=== PATIENT | female | born 1970 | race African-American/Black ===

== ENCOUNTER 2024-02-26 17:58 | Emergency (ER) | payer BC ==
[2024-02-26 18:33] LABS: PT Prothrombin Time 12.5 SECONDS (9.5-12.5); Protime INR 1.14
[2024-02-26 18:42] LABS: Absolute Eosinophils 0.1 K/uL (0-0.5); Absolute Lymphocytes (CBC) 1.4 K/uL (0.7-4.9); Absolute Monocytes 0.7 K/uL (0.1-1.3); Absolute Neutrophil 6.2 K/uL (1.8-8.0); Basophils % 0.4 % (0-1.3); Eosinophils % 1.7 % (0-4.4); Hematocrit 38.8 % (36.0-45.0); Hemoglobin 13.1 g/dL (12.0-15.0); Lymphocytes % 16.2 % (15.3-44.8); MCH 27.9 pg (27.0-35.0); MCHC 33.8 g/dL (32.0-36.0); MCV 82.5 fL (80-100); MPV 9.1 fL (7.6-11.3); Neutrophils % 73.7 % (41.7-73.7); Platelets 214 thou/uL (152-406); Red Cell Distribution Width 13.9 % (12.1-15.2)
[2024-02-26 18:44] LABS: Albumin 4.2 g/dL (3.4-5.0); Albumin/Globulin Ratio 1.1 (1.1-1.8); Bilirubin Direct 0.2 mg/dL (0-0.2); Bilirubin Indirect, Calculated 0.5 mg/dL (0.2-0.8); Bilirubin Total 0.7 mg/dL (0.2-1.0); Globulin 3.9 g/dL (2.3-3.5); Magnesium 2.1 mg/dL (1.6-2.4); Protein, Total 8.1 g/dL (6.4-8.2); Troponin High Sensitivity 3.3 pg/mL (<58.9)
--- NOTE | 2024-02-26 19:02 | RAD REPORT ---
EXAM DESCRIPTION: RAD - Chest Single View - 02/26/2024 6:54 pm CLINICAL HISTORY: CHEST PAIN Chest pain. COMPARISON: No comparisons FINDINGS: Portable technique limits examination quality. The lungs are grossly clear. The heart is normal in size. No displaced fractures. IMPRESSION: No acute intrathoracic process suspected.
[2024-02-26] MEDS ORDERED: POTASSIUM 25 MEQ EFFERV TAB ONE (19:20)
--- NOTE | 2024-02-26 20:03 | RAD REPORT ---
EXAM DESCRIPTION: CT - Head Brain Wo Cont - 02/26/2024 7:57 pm CLINICAL HISTORY: DIZZINESS Headache, drowsiness COMPARISON: No comparisons TECHNIQUE: All CT scans are performed using dose optimization technique as appropriate and may inclu de automated exposure control or mA/KV adjustment according to patient size. FINDINGS: No intracranial hemorrhage, hydrocephalus or extra-axial fluid collection.No areas of brai n edema or evidence of midline shift. The paranasal sinuses and mastoids are clear. The calvarium is intact. IMPRESSION: No acute intracranial abnormality.
--- NOTE | 2024-02-26 22:16 | ER ---
Nurse's Notes [facility] Name: Chato Galicia Age: 53 yrs Sex: Female : 1970 Arrival Date: 02/26/2024 Time: 17:58 Bed 5 Private MD: Diagnosis: Chest pain, unspecified;Dizziness and giddiness Presentation: 02/25 18:02 Chief complaint: Patient states: chest pain started about 2pm, comes and goes, stays in ko1 one spot in the left upper chest area. Dizziness or "just feeling wobbly" off and on throughout the day. Coronavirus screen: At this time, the client does not indicate any symptoms associated with coronavirus-19. Ebola Screen: No symptoms or risks identified at this time. Initial Sepsis Screen: Does the patient meet any 2 criteria? No. Patient's initial sepsis screen is negative. Does the patient have a suspected source of infection? No. Patient's initial sepsis screen is negative. Risk Assessment: Do you want to hurt yourself or someone else? Patient reports no desire to harm self or others. Onset of symptoms was February 26, 2024. 18:02 Method Of Arrival: Ambulatory ko1 18:02 Acuity: SHANTELL 3 ko1 Triage Assessment: 18:06 General: Appears in no apparent distress. Behavior is calm, cooperative, appropriate ko1 for age. Pain: Complains of pain in anterior aspect of left upper chest. Cardiovascular: Reports chest pain. 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 - Infectious Disease History:: Denies. - Social history:: Smoking status: Patient denies any tobacco usage or history of. Screenin:08 [facility] ED Fall Risk Assessment (Adult) History of falling in the last 3 months, mb9 including since admission No falls in past 3 months (0 pts) Confusion or Disorientation No (0 pts) Intoxicated or Sedated No (0 pts) Impaired Gait No (0 pts) Mobility Assist Device Used No (0 pt) Altered Elimination No (0 pt) Score/Fall Risk Level 0 - 2 = Low Risk Oriented to surroundings, Maintained a safe environment, Educated pt \\T\\ family on fall prevention, incl call for assistance when getting out of bed. Abuse screen: Denies threats or abuse. Nutritional screening: No deficits noted. Tuberculosis screening: No symptoms or risk factors identified. Assessment: 18:18 General: Appears in no apparent distress. Behavior is calm, cooperative. Pain: mb9 Complains of pain in chest Pain does not radiate. Pain currently is 8 out of 10 on a pain scale. Quality of pain is described as throbbing, Pain began suddenly. Neuro: Llanos Agitation-Sedation Scale (RASS): 0 - Alert and Calm Level of Consciousness is awake, alert, obeys commands, Oriented to person, place, time, situation, Appropriate for age Reports dizziness. Cardiovascular: Reports chest pain, Patient's skin is warm and dry. Respiratory: Airway is patent Respiratory effort is even, unlabored, Respiratory pattern is regular, symmetrical. GI: Abdomen is round non-distended. : No signs and/or symptoms were reported regarding the genitourinary system. EENT: No signs and/or symptoms were reported regarding the EENT system. Derm: Skin is pink, warm \\T\\ dry. Musculoskeletal: Range of motion: intact in all extremities. 19:24 Reassessment: Patient and/or family updated on plan of care and expected duration. Pain ha1 level reassessed. Patient is alert, oriented x 3, equal unlabored respirations, skin warm/dry/pink. pain 4/10 Patient states feeling better. Patient states symptoms have improved. 21:12 Reassessment: Patient appears in no apparent distress at this time. No changes from mb9 previously documented assessment. Patient and/or family updated on plan of care and expected duration. Pain level reassessed. Patient is alert, oriented x 3, equal unlabored respirations, skin warm/dry/pink. 22:24 Reassessment: Patient appears in no apparent distress at this time. No changes from km8 previously documented assessment. Patient and/or family updated on plan of care and expected duration. Pain level reassessed. Patient is alert, oriented x 3, equal unlabored respirations, skin warm/dry/pink. Vital Signs: 18:02 BP 146 / 87; Pulse 75; Resp 16; Temp 98.8; Pulse Ox 100% ; ko1 18:46 BP 147 / 81; Pulse 72; Resp 16; Pulse Ox 98% on R/A; mb9 19:25 BP 133 / 72; Pulse 88; Resp 17 S; Pulse Ox 100% on R/A; ha1 21:12 BP 129 / 70; Pulse 69; Resp 18; Pulse Ox 99% on R/A; mb9 22:24 BP 127 / 67; Pulse 62; Resp 16; Pulse Ox 99% on R/A; km8 ED Course: 18:01 Patient arrived in ED. mg5 18:06 Triage completed. ko1 18:06 Arm band placed on left wrist. 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 18:08 Rebecca Momin, RN is Primary Nurse. mb9 18:08 Placed in gown. Bed in low position. Call light in reach. Side rails up X 1. Provided mb9 Education on: press call light if needing anything. Client placed on continuous cardiac and pulse oximetry monitoring. NIBP monitoring applied. plow mechanic on. 18:09 Riley Valdez PA is PHCP. cp 18:09 Jose Manuel Acosta MD is Attending Physician. cp 18:18 Basic Metabolic Panel Sent. mb9 18:18 CBC with Diff Sent. mb9 18:18 LFT's Sent. mb9 18:18 Magnesium Sent. mb9 18:18 PT-INR Sent. mb9 18:18 Troponin HS Sent. mb9 18:18 EKG done, by ED staff, reviewed by Riley NGUYEN. Inserted saline lock: 20 gauge in mb9 right antecubital area, using aseptic technique. 18:19 No provider procedures requiring assistance completed. mb9 18:19 Initial lab(s) drawn, by ny, sent to lab. mb9 18:56 XRAY Chest (1 view) In Process Unspecified. EDMS 19:25 O2 via room air. ha1 19:58 CT Head Brain wo Cont In Process Unspecified. EDMS 21:36 Troponin High Sensitivity Sent. mb9 21:36 EKG done, by ED staff, reviewed by Riley NGUYEN. mb9 21:50 Patient requests food. Patient requests liquids. mb9 22:15 Dirk Olmstead MD is Referral Physician. cp 22:24 IV discontinued, intact, bleeding controlled, No redness/swelling at site. Pressure km8 dressing applied. Administered Medications: 19:24 Drug: Potassium PO Effervescent Tablet 50 mEq PO once; dissolve in 4 ounces of water or ha1 juice Route: PO; 19:46 Follow up: Response: No adverse reaction mb9 20:00 Follow up: Response: No adverse reaction; Marked relief of symptoms 1 Medication: 18:19 VIS not applicable for this client. mb9 Outcome: 22:16 Discharge ordered by . sachin 22:27 Discharged to home ambulatory, [facility] 22:27 Condition: stable 22:27 Discharge instructions given to patient, family, Instructed on discharge instructions, follow up and referral plans. Demonstrated understanding of instructions, follow-up care, 22:28 Patient left the ED. 1 Signatures: Dispatcher [employer] EDMS Riley Valdez PA PA cp Ayala, Heidy, RN RN ha1 Myriam Beltran RN RN ko1 Rebecca Momin RN RN mb9 Elsa Jameson [facility] Renuka Barnard RN RN km8
--- NOTE | 2024-02-26 22:16 | EDPHYS ---
Physician Documentation [facility] Name: Chato Galicia Age: 53 yrs Sex: Female : 1970 Arrival Date: 02/26/2024 Time: 17:58 Bed 5 Private MD: ED Physician Jose Manuel Acosta HPI: 02/25 18:15 This 53 yrs old Black Female presents to ER via Ambulatory with complaints of Chest cp Pain, Dizziness. 18:15 The patient or guardian reports chest pain that is located primarily in the anterior cp chest wall. 18:15 Onset: today about 1400, lasted about 20 minutes. No pain now. Associated signs and cp symptoms: Pertinent positives: dizziness, Pertinent negatives: abdominal pain, cough, diaphoresis, lower extremity pain, lower extremity swelling, near syncope, palpitations, syncope, vomiting. The chest pain is described as throbbing. Duration: The patient or guardian reports a single episode, that is now resolved. 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 - Infectious Disease History:: Denies. - Social history:: Smoking status: Patient denies any tobacco usage or history of. ROS: 18:20 Constitutional: Negative for body aches, chills, fever, poor PO intake, cp 18:20 Cardiovascular: Positive for chest pain, Negative for edema, palpitations, cp 18:20 Eyes: Negative for injury, pain, redness, and discharge, cp 18:20 ENT: Negative for drainage from ear(s), ear pain, sore throat, difficulty swallowing, difficulty handling secretions, 18:20 Respiratory: Negative for cough, wheezing, 18:20 Abdomen/GI: Negative for abdominal pain, vomiting, diarrhea, constipation, 18:20 Neuro: Positive for dizziness, Negative for altered mental status, numbness, syncope, near syncope, weakness, 18:20 All other systems are negative, Exam: 18:20 ECG was reviewed by the Attending Physician. cp 18:25 Constitutional: The patient appears in no acute distress, alert, awake, cp non-diaphoretic, non-toxic, well developed, well nourished, 18:25 Head/Face: Normocephalic, atraumatic. cp 18:25 Eyes: Periorbital structures: appear normal, Conjunctiva: normal, no exudate, no injection, Sclera: no appreciated abnormality, Lids and lashes: appear normal, bilaterally, 18:25 ENT: External ear(s): are unremarkable, Nose: is normal, Mouth: Lips: moist, Oral mucosa: pink and intact, moist, Posterior pharynx: is normal, airway is patent, no erythema, no exudate, 18:25 Chest/axilla: Inspection: normal, 18:25 Cardiovascular: Rate: normal, Rhythm: regular, JVD: is not appreciated, 18:25 Respiratory: the patient does not display signs of respiratory distress, Respirations: normal, no use of accessory muscles, no retractions, labored breathing, is not present, Breath sounds: are clear throughout, no decreased breath sounds, no stridor, no wheezing, 18:25 Abdomen/GI: Inspection: abdomen appears normal, Palpation: abdomen is soft and non-tender, in all quadrants, 18:25 Back: pain, is absent, ROM is normal, 18:25 Neuro: Orientation: is normal, Mentation: is normal, Cerebellar function: Romberg testing is negative, Motor: moves all fours, strength is normal, Sensation: is normal, 21:38 ECG was reviewed by the Attending Physician. cp Vital Signs: 18:02 BP 146 / 87; Pulse 75; Resp 16; Temp 98.8; Pulse Ox 100% ; ko1 18:46 BP 147 / 81; Pulse 72; Resp 16; Pulse Ox 98% on R/A; mb9 19:25 BP 133 / 72; Pulse 88; Resp 17 S; Pulse Ox 100% on R/A; ha1 21:12 BP 129 / 70; Pulse 69; Resp 18; Pulse Ox 99% on R/A; mb9 22:24 BP 127 / 67; Pulse 62; Resp 16; Pulse Ox 99% on R/A; km8 MDM: 18:09 Patient medically screened. cp 22:15 Data reviewed: vital signs, nurses notes, lab test result(s), EKG, radiologic studies, cp CT scan, plain films, and as a result, I will discharge patient. 22:15 Differential diagnosis: pneumonia acute [place], anxiety. Consideration of cp Admission/Observation Escalation of care including admission/observation considered. Independent interpretation of the following test(s) in the Emergency Department EKG: See my EKG interpretation above. Response to treatment: the patient's symptoms have markedly improved after treatment, and as a result, I will discharge patient. Special discussion: Based on the patient's history, exam, and Dx evaluation, there is no indication for emergent intervention or inpatient Tx. It is understood by the patient/guardian that if the Sx's persist or worsen they need to return immediately for re-evaluation. 02/25 18:14 Order name: Basic Metabolic Panel; Complete Time: 19:13 cp 02/25 19:13 Interpretation: Normal except: K 3.0; GLUC 115. cp 02/25 18:14 Order name: CBC with Diff; Complete Time: 19:13 cp 02/25 18:14 Order name: LFT's; Complete Time: 19:13 cp 02/25 18:14 Order name: Magnesium; Complete Time: 19:13 cp 02/25 18:14 Order name: PT-INR; Complete Time: 19:13 cp 02/25 18:14 Order name: Troponin HS; Complete Time: 19:13 cp 02/25 19:13 Interpretation: Reviewed. cp 02/25 21:20 Order name: Troponin High Sensitivity; Complete Time: 22:15 cp 02/25 22:15 Interpretation: Reviewed. cp 02/25 18:14 Order name: XRAY Chest (1 view); Complete Time: 19:13 cp 02/25 19:14 Order name: CT Head Brain wo Cont; Complete Time: 22:15 cp 02/25 22:15 Interpretation: Report reviewed. cp 02/25 18:14 Order name: Cardiac monitoring; Complete Time: 18:18 cp 02/25 18:14 Order name: EKG - Nurse/Tech; Complete Time: 18:18 cp 02/25 18:14 Order name: IV Saline Lock; Complete Time: 18:18 cp 02/25 18:14 Order name: Labs collected and sent; Complete Time: 18:18 cp 02/25 18:14 Order name: O2 Per Protocol; Complete Time: 18:18 cp 02/25 18:14 Order name: O2 Sat Monitoring; Complete Time: 18:18 cp 02/25 21:20 Order name: EKG - Nurse/Tech; Complete Time: 21:36 cp EC:20 Rate is 78 beats/min. Rhythm is regular. CO interval is normal. QRS interval is normal. cp QT interval is normal. T waves are Inverted in lead aVR. Interpreted by me. Reviewed by me. 21:38 Rate is 63 beats/min. Rhythm is regular. CO interval is normal. QRS interval is normal. cp QT interval is normal. T waves are Inverted in lead aVR. Interpreted by me. Reviewed by me. Administered Medications: 19:24 Drug: Potassium PO Effervescent Tablet 50 mEq PO once; dissolve in 4 ounces of water or ha1 juice Route: PO; 19:46 Follow up: Response: No adverse reaction mb9 20:00 Follow up: Response: No adverse reaction; Marked relief of symptoms ha1 Disposition: 02/26 09:01 Co-signature as Attending Physician, Jose Manuel Acosta MD I reviewed the patient's care rn provided by the Advanced Practice Provider and agree with the diagnosis and treatment plan. Disposition Summary: 02/26/24 22:16 Discharge Ordered Notes: Location: Home cp Problem: new cp Symptoms: have improved cp Condition: Stable cp Diagnosis - Chest pain, unspecified cp - Dizziness and giddiness cp Followup: cp - With: Dirk Olmstead MD - When: 2 - 3 days - Reason: Recheck today's complaints Discharge Instructions: - Discharge Summary Sheet cp - Nonspecific Chest Pain, Adult cp - Dizziness cp - Aspirin and Your Heart cp Forms: - Medication Reconciliation Form cp - Antibiotic Education cp - Prescription Opioid Use cp - Patient Portal Instructions cp - Leadership Thank You Letter cp Signatures: Dispatcher [employer] Jose Manuel Ledesma MD MD rn Page, Corey, PA PA cp Renetta Huerta, RN RN ha1 Myriam Beltran RN RN ko1 Rebecca Momin RN mb9 Corrections: (The following items were deleted from the chart) 02/25 18:15 18:15 BASIC METABOLIC PANEL+C.LAB.BRZ ordered. EDMS EDMS 18:15 18:15 CBC+H.LAB.BRZ ordered. EDMS EDMS 18:15 18:15 HEPATIC FUNCTION+C.LAB.BRZ ordered. EDMS EDMS 18:15 18:15 MAGNESIUM+C.LAB.BRZ ordered. EDMS EDMS 18:15 18:15 PROTIME (+INR)+COAG.LAB.BRZ ordered. EDMS EDMS 18:15 18:15 Troponin High Sensitivity+C.LAB.BRZ ordered. EDMS EDMS 18:15 18:15 Chest Single View+RAD.RAD.BRZ ordered. EDMS EDMS 02/26 15:14 02/25 18:15 The chest pain is described as a pressure, cp cp
[2024-02-26 23:46] VITALS: BP 127/67; TEMP 98.8; O2SAT 99
== END 2024-02-26 22:28 | disposition home or self-care (01) ==
LOC: ER 17:58
DX: R07.89 Other chest pain (principal); R42 Dizziness and giddiness; R73.03 Prediabetes; Z91.013 Allergy to seafood
CPT/HCPCS: 36415; 70450; 71045; 80048; 80076; 83735; 84484; 85025; 85610; 93005; 99285